=== PATIENT | female | born 1970 | race Caucasian/White ===

== ENCOUNTER 2017-08-31 06:17 | Day surgery (SDC) | payer OTHER ==
--- OUTSIDE RECORDS SUMMARY | 2017-08-31 06:23 | XMS REPORT ---
:1970 [facility] Address [address] [place] [address] Dr. [address] [place] [id number] Care Team Providers Name Role Phone DR CIRA FUENTES Unavailable Unavailable Problems This patient has no known problems. Allergies, Adverse Reactions, Alerts This patient has no known allergies or adverse reactions. Medications This patient has no known medications. Encounters Start End Encounter Admission Attending Care Care Encounter Date/Time Date/Time Type Type Clinicians Facility Department ID 2017-03-23 2017-03-23 Outpatient JENNIE MAYS [facility] [id number] 04:19:00 06:15:00 CIRA
[2017-08-31] MEDS ORDERED: SCOPOLAMINE HYDROBROMIDE PATCH TD ONE (06:43)
[2017-08-31] MEDS ORDERED: CEFAZOLIN/SWI 1gm 2 GM/20 ML SYR ONE (06:46)
[2017-08-31] MEDS ORDERED: Ringers Lactate 1,000 ML IV ONE ×2 (06:46→10:00)
[2017-08-31] MEDS ORDERED: GENTAMICIN SULF 80 MG/2ML INJ ONE (06:47)
[2017-08-31] MEDS ORDERED: BACITRACIN 50000 UNIT VIAL ONE (06:47)
[2017-08-31] MEDS ORDERED: CEFAZOLIN SODIUM 1 GM/VIAL ONE (06:47)
[2017-08-31] MEDS ORDERED: LIDOCAINE 1% W/EPI 1:100,000 MDV 50 ML VIAL ONE (06:47)
[2017-08-31] MEDS ORDERED: NS 0.9% VIAL 20 ML ONE (06:47)
[2017-08-31] MEDS ORDERED: CEFAZOLIN/SWI 2gm 2 GM/20 ML SYR IV SCH (07:00)
[2017-08-31] MEDS ORDERED: MIDAZOLAM HCL 2 MG/2 ML INJ ONE (07:02)
[2017-08-31] MEDS ORDERED: FENTANYL CITR 100 MCG/2 ML ONE (07:02)
[2017-08-31] MEDS ORDERED: PROPOFOL 200 MG/20 ML VIAL IV ONE (07:02)
[2017-08-31] MEDS ORDERED: ROCURONIUM 50 MG/5 ML VIAL IV ONE ×2 (07:02→08:01)
[2017-08-31] MEDS ORDERED: LIDOCAINE 1% MPF 2 ML AMPULE ONE (07:03)
[2017-08-31] MEDS ORDERED: ONDANSETRON HCL 40 MG/20 ML VIAL ONE (07:03)
[2017-08-31] MEDS ORDERED: KETOROLAC 30 MG/ML INJ ONE (07:37)
[2017-08-31] MEDS ORDERED: DEXAMETHASONE 10 MG/ML VIAL ONE (07:37)
[2017-08-31] MEDS ORDERED: EPHEDRINE SULF 50 MG/5 ML SYR ONE (08:35)
[2017-08-31] MEDS ORDERED: NEOSTIGMINE 1 MG/ML -5 ML SYRINGE ONE (09:23)
[2017-08-31] MEDS ORDERED: GLYCOPYRROLATE 0.2 MG/ML SYR ONE (09:23)
[2017-08-31] MEDS ORDERED: PROMETHAZINE 25 MG/ML VIAL ONE (10:12)
[2017-08-31] MEDS: MEPERIDINE HCL 50 MG/ML AMP ONE ×4 (10:16→10:46)
--- NOTE | 2017-08-31 20:55 | OP ---
Date of Procedure: 08/31/2017 Surgeon: Tyrone Maloney MD Dough Maker: LORENZO Taveras. Preoperative Diagnoses: 1.Bilateral mammary hypoplasia. 2.Bilateral ptosis. 3.Breast asymmetry. Postoperative Diagnoses: 1.Bilateral mammary hypoplasia. 2.Bilateral ptosis. 3.Breast asymmetry. Operation Performed: 1.Bilateral augmentation mammoplasty using [place] smooth, round, high profile gel implants, placed t hrough an inframammary approach in a dual-plane pocket, right breast 500 cc and left breast 550 cc. 2.Circum vertical mastopexies, bilateral breast. Anesthesia: General endotracheal anesthesia and local anesthetic. A total of 20 cc of 1% lidocaine with epinephrine 1:100,000 infiltrated in the breast prior to prepping and draping and based on preop erative markings. Specimens: There were no specimens sent. Blood Loss: Minimal. Complications: There were no complications. All needle, sponge, instrument counts were correct at the end of the case. Indications: The patient is a 47-year-old white female with aesthetic rejuvenation of breasts, both in volume, shape, symmetry, and lifting. She understands risks were bleeding, infection, healing, sc arring, continued asymmetry, alterations in nipple areolar breast sensation, anesthetic risks as well as risk to having the gel implants in place and wishes to proceed. Description Of Procedure: The patient was seen in the preoperative holding area. The operative plan reviewed. The size and style and the implants were confirmed. The patient was marked for both the lifting procedure and the augmentation procedure. She was given Ancef 2 g IV piggyback prior to skin incision within 1 hour. HARINDER hose and sequential compression devices were placed on lower extremitie s and activated prior to induction of general anesthesia. The patient was then brought to the operat ing suite, placed in a comfortable position on the bed. After induction of general anesthesia, the a liza were padded at the side and taped across the lower abdomen. The breasts were infiltrated with lo marcelino anesthetic and then prepped and draped in sterile fashion with Betadine. In similar fashion bila terally, inframammary incisions were made sharply based on preoperative markings and then dissection was carried down with cautery to the subcutaneous tissue and superficial fascia down to the chest wal l. Dissection was then carried up to the lateral border of the pectoralis muscle, which was then bridgette vated off the chest wall above its origin up to a point corresponding to the external point of the me dial inframammary fold. A dual plane pocket was then created by dividing the muscle from this point back laterally towards the edge and 1 cm above its origin. This created a dual plane pocket and then further dissection up to the anterior axillary fold with the lateral breast and off the pectoralis m inor and then superiorly and medially off the chest wall. After creating symmetrical pockets and ens uring hemostasis, the pockets were irrigated with a 50:50 mix of 10% Betadine solution and triple ant ibiotic solution (500 cc of warm saline with 1 g Ancef, 50,000 units of bacitracin and 80 mg of genta micin). Gloves were then changed and wiped down with triple antibiotic solution and this lap pads so aked in the antibiotic solution was placed down in front of the incisions to cover the skin and then Betadine-soaked sponges were placed over the incisions. The implants which had been soaked in the tr iple antibiotic solution were placed in the pocket in a no touch technique using a Jacobs funnel. Pr ior to placement of the implants, the 50:50 mix of solution was suctioned out of the pocket and then irrigated again with just triple antibiotic solution. Final hemostasis to be satisfactory. The impl ants were then placed using a Jacobs funnel, 500 cc implant on the right, 550 cc on the left. Minor pocket adjustments were made with the uterine sound. The pockets were irrigated with triple antibiot ic solution and found to have good hemostasis. The superficial fascia layer was closed with a runnin g 2-0 PDS suture. Next, attention was turned to the bilateral mastopexies. In similar fashion skyler barksdale, the areola was marked with a 42 mm nipple-areolar marker and then a periareolar strip of skin was removed out to the outer edge of the previously marked areola. The dermis was then scored leavin g a 5 mm border at the edge and then undermined for approximately 1 cm. The patient was then sat up at approximately 35 degrees and a tailor tack method was used to tailor out the skin along the lower pole of the breast connecting the areola opening to the inframammary fold incision opening. After ta ilor tacking this together was marked, the patient was laid back down flat again. The johnny were r emoved and this area de-epithelialized and then re-stapled and re-checked for symmetry and correction of ptosis. Once finding everything to be satisfactory, the areola was inset first by putting a 2-0 [place] Betadine-soaked pursestring suture and the areola tied down around the 38 mm nipple areola m arker to stabilized the opening and then the areola was inset with a running subcuticular 4-0 Monocry l and then a running 5-0 rapid absorb 5-0 skin layer. The inframammary incision portion was closed w ith a subdermal subcutaneous 3-0 PDS. The vertical portion of the incision was closed with interrupt ed 2-0 subdermal, subcutaneous 2-0 PDS and a running subcuticular 4-0 Monocryl to close the incision. At the end of the case, the areola was had no congestion or brisk capillary refill. All incisions were intact and there was good much improved symmetry and correction of ptosis. The breasts were the n dressed with Xeroform gauze, also a nitroglycerin paste very thin cut was placed around the areola and around the outside edges of the incisions since the patient had smoking history to help insure go od blood supply to this area. She will use this in each dressing change for the next week and then t he wounds were then dressed with ABD pads, Kerlix, and Baudilio wrap. She was extubated and taken to nam very in stable condition where she will be discharged home under the care of her with post ca re instructions for use of ice, arm elevation, positioning for comfort, medications for pain control including tramadol to take as directed. For muscle relaxation, Flexeril to take as directed and doxy cycline take as directed and oral Zofran to take as directed as needed for nausea. She will follow u p in the office tomorrow for recheck and dressing change and she will advance to regular diet as tolerated. GP/MODL Voice ID: [id number] Report ID: [id number]
== END 2017-08-31 12:20 | disposition home or self-care (01) ==
LOC: OR 06:17
PROVIDERS: ATTEND Surgery Plastic and Reconstructive Surgery
PROC: 0H0V0JZ Alteration of Bilateral Breast with Synthetic Substitute, Open Approach (ICD-10-PCS; principal; 2017-08-31 07:30)
DX: N64.82 Hypoplasia of breast (principal); N64.81 Ptosis of breast; N64.89 Other specified disorders of breast; I10 Essential (primary) hypertension; Z90.710 Acquired absence of both cervix and uterus; Z87.891 Personal history of nicotine dependence
CPT/HCPCS: J0690; J1100; J1580; J2001; J2175; J2250; J2405; J2550; J2710; J3010

== ENCOUNTER 2025-01-12 07:13 | Day surgery (SDC) | payer BC ==
[2025-01-09 15:47] LABS: Absolute Lymphocytes (CBC) 2.3 K/uL (0.7-4.9); Hematocrit 42.5 % (36.0-45.0); Hemoglobin 14.7 g/dL (12.0-15.0); MCH 32.6 pg (27.0-35.0); MCHC 34.5 g/dL (32.0-36.0); MCV 94.4 fL (80-100); MPV 8.8 fL (7.6-11.3); Nucleated RBC Absolute Count 0.0 (0-0); Nucleated Red Blood Cells % 0.0 % (0-0); RBC Red Blood Cell Count 4.51 M/uL (3.86-4.86); White Blood Count 6.10 thou/uL (4.3-10.9)
[2025-01-09 16:04] LABS: ALT/SGPT 26 U/L (13-56); AST/SGOT 17 U/L (15-37); Albumin 3.8 g/dL (3.4-5.0); Albumin/Globulin Ratio 0.9 (1.1-1.8); Alkaline Phosphatase 68 U/L (45-117); Anion Gap 8.5 mEq/L (5.0-15.0); BUN Blood Urea Nitrogen 13 mg/dL (7-18); Globulin 4.2 g/dL (2.3-3.5); Glucose Level 92 mg/dL (74-106); Lipase 58 U/L (13-75); Potassium 3.5 mEq/L (3.5-5.1)
[2025-01-09 16:07] LABS: Bilirubin Indirect, Calculated 0.2 mg/dL (0.2-0.8)
--- NOTE | 2025-01-09 16:26 | RAD REPORT ---
EXAM: Chest Pa And Lat (2 Views) HISTORY: 54 years Female PRE OP COMPARISON: No prior exams FINDINGS: LUNGS/PLEURA: The lungs are clear. No pleural effusions or pneumothorax. No pulmonary edema. CARDIAC/MEDIASTINUM: The cardiac silhouette is within normal limits. UPPER ABDOMEN: No significant abnormality. BONES: No acute abnormality. ACDF in the cervical spine. LINES/TUBES/OTHER: N/A IMPRESSION: No evidence of acute cardiopulmonary disease.
[2025-01-12] MEDS ORDERED: Ringers Lactate 1,000 ML IV ONE (07:34)
[2025-01-12] MEDS ORDERED: ONDANSETRON 4 MG/2 ML VIAL ONE (08:08)
[2025-01-12] MEDS ORDERED: GLYCOPYRROLATE 0.2 MG/ML SYR ONE (08:08)
[2025-01-12] MEDS ORDERED: FENTANYL CITR 100 MCG/2 ML ONE ×2 (08:08→09:16)
[2025-01-12] MEDS ORDERED: NEOSTIGMINE 1 MG/ML -10 ML VIAL ONE (08:08)
[2025-01-12] MEDS ORDERED: LIDOCAINE 2% MPF 5 ML VIAL ONE (08:10)
[2025-01-12] MEDS ORDERED: ROCURONIUM 50 MG/5 ML VIAL IV ONE (08:10)
[2025-01-12] MEDS ORDERED: MIDAZOLAM HCL 2 MG/2 ML INJ ONE ×2 (08:10→08:56)
[2025-01-12] MEDS: CEFOXITIN SODIUM 1 GM/VIAL ONE (08:45)
[2025-01-12] MEDS ORDERED: EPHEDRINE SULF 50 MG/ML VIAL ONE (09:03)
[2025-01-12] MEDS ORDERED: Phenylephrine HCl 10 MG/ML 1 ML VIAL ONE (09:10)
[2025-01-12] MEDS ORDERED: Mastisol Adhesive Liq ONE ×2 (09:30→09:44)
--- NOTE | 2025-01-12 09:43 | P.BOP ---
Preoperative diagnosis: symptomatic cholelithiasis, acute cholecystitis Postoperative diagnosis: same Primary procedure: Laparoscopic cholecystectomy Estimated blood loss: <10cc Specimen: gb Findings: as above Anesthesia: General Complications: None Transferred to: Recovery Room Condition: Good
[2025-01-12] MEDS: HYDROMORPHONE HCL 1 MG/ML INJ ONE (09:58)
[2025-01-12] MEDS: HYDROCODONE/APAP 10/325 TAB ONE (10:58)
[2025-01-12 11:46] VITALS: BP 113/69; O2SAT 96
[2025-01-12 11:47] VITALS: TEMP 97
--- NOTE | 2025-01-12 20:23 | OP ---
Date of Procedure: 01/12/2025 Surgeon: Rodrigue Smith MD Preoperative Diagnoses: Symptomatic cholelithiasis, acute cholecystitis, right upper quadrant abdomi nal pain. Postoperative Diagnoses: Symptomatic cholelithiasis, acute cholecystitis, right upper quadrant abdom inal pain. Procedure: Laparoscopic cholecystectomy. Estimated Blood Loss: Less than 10 cc. Specimen: Gallbladder. Anesthesia: General plus local. Complications: None. Indications: This is a case of a female, who comes to us with above diagnoses. Fully explained the benefits, alternatives, and risks of laparoscopic, possible open cholecystectomy, which include, but not limited to infection, bleeding, damage to adjacent structures, anesthesia complication, choledoch olithiasis, bile leak, pancreatitis, IA, and even . She also understands this may not relieve t he symptoms. She might need more than one surgical intervention. She understood, signed a consent. Description Of Procedure: The patient was brought to the operating room, placed in supine position. Anesthesia was induced without complication. Abdominal area was prepped and draped in a sterile fas hion. Local anesthesia was applied followed by sharp incision of the skin in the periumbilical regio n. Incision was carried down to fascia, which was opened under direct vision. Peritoneum was encoun tered, opened under direct vision. Vicryl #1 was placed inside the fascia. Elle trocar was carefu lly introduced. Pneumoperitoneum was obtained. I placed 3 more trocars, 5 mm each one of them in th e epigastric, right upper quadrant area under direct visualization. Put a grasper in the fundus of t he gallbladder, another grasper in the infundibulum, retracted the gallbladder in the inferolateral f ashion exposing the triangle of Calot and obtaining critical view. Cystic duct and cystic artery wer e clearly isolated, freed circumferentially, and a connection between those and the gallbladder were clearly identified. I proceeded to ligate those by using at least 3 clips proximal, 1 clip distal, l igation in middle. Same was done with the cystic artery. No bile leak, no bleeding. The gallbladde r was removed from liver using Bovie cauterizer and removed from abdominal cavity using EndoCatch thr ough the umbilical incision. The area was inspected once again. No bile leak, no bleeding. At chichi t moment, I proceeded to remove the trocars under direct vision. Deflated the pneumoperitoneum. Glenny sed the fascia with #1 Vicryl, irrigated subcutaneous tissue, closed that with 3-0 Monocryl and then Steri-Strips on top. Sponge count and instrument count were correct. The patient tolerated the proc edure well. The patient on her way to recovery in stable condition. DAKOTA/ANA LAURA Voice ID: [id number] Report ID: [id number]
== END 2025-01-12 11:27 | disposition home or self-care (01) ==
LOC: OR 07:13
PROVIDERS: ATTEND Surgery
PROC: 0FT44ZZ Resection of Gallbladder, Percutaneous Endoscopic Approach (ICD-10-PCS; principal; 2025-01-12 08:30)
DX: K80.10 Calculus of gallbladder with chronic cholecystitis without obstruction (principal); R10.11 Right upper quadrant pain
CPT/HCPCS: 93005; 85025; 80048; 36415; 80076; 88304; 83690; 71046; 47562; J2704; J2710; J2371; J2003; J2250 ×2; J3010 ×2; J1100; J1171; J0694; J2405; J7120